=== PATIENT | male | born 1975 | race Caucasian/White ===

== ENCOUNTER → 2018-05-18 | Outpatient (CLI) | payer BC | END | disposition home or self-care (01) | LOC: LAB 15:27 | DX: Z23 Encounter for immunization (principal); R19.7 Diarrhea, unspecified; I10 Essential (primary) hypertension; R10.13 Epigastric pain ==

== ENCOUNTER → 2020-10-04 | Outpatient (CLI) | payer BC, OTHER ==
[2020-10-04 09:13] LABS: ALBUMIN 4.1 gm/dl (3.1-4.5); ALKALINE PHOSPHATASE 60 U/L (45-117); BILIRUBIN, DIRECT 0.2 mg/dL (0.0-0.2); CREATININE 1.21 mg/dL (0.70-1.30); SGOT/AST 25 IU/L (3-35); SGPT/ALT 54 U/L (12-78); TOTAL PROTEIN 8.4 gm/dL (6.4-8.2)
[2020-10-05 04:06] LABS: HEP B CORE AB, IGM Negative (Negative); HEPATITIS B SURFACE AG Negative (Negative); HEPATITIS C VIRUS ANTIBODY <0.1 s/co (0.0-0.9)
== END | disposition home or self-care (01) ==
LOC: US 09-04 07:30 → LAB 07:11 → US 07:11
PROVIDERS: ATTEND Nurse Practitioner Family
DX: K76.0 Fatty (change of) liver, not elsewhere classified (principal)

== ENCOUNTER → 2024-11-08 | Outpatient (CLI) | payer BC ==
[2024-11-08 07:51] LABS: BASO % 0.4 % (0.0-1.0); EOS # 0.4 10*3/uL (0.0-0.4); EOS % 5.6 % (1.0-4.0); HEMATOCRIT 48.1 % (42.0-52.0); MEAN CELL VOLUME 90.4 fl (80.0-94.0); MEAN CORPUSCULAR HGB 30.5 pg (27.0-31.0); MEAN CORPUSCULAR HGB CONC 33.7 g/dl (33.0-37.0); MEAN PLATELET VOLUME 9.7 fl (9.6-12.3); NEUT # 3.1 10*3/uL (2.3-7.9); NEUT % 42.2 % (47.0-73.0); PLATELET COUNT AUTOMATED 379 10*3/uL (130-400); RED BLOOD COUNT 5.32 10*6/uL (4.50-5.90); WHITE BLOOD COUNT 7.3 10*3/uL (4.8-10.8)
[2024-11-08 08:46] LABS: ALKALINE PHOSPHATASE 61 U/L (46-116); BUN 16 mg/dl (9-23); CHLORIDE 105 mmol/L (98-107); CHOLESTEROL 173 mg/dL (<200); LDL CHOLESTEROL 99 mg/dL (9-159); POTASSIUM 3.6 mmol/L (3.4-5.1); SGPT/ALT 39 U/L (5-49); TOTAL PROTEIN 7.9 gm/dL (6.0-8.0); TRIGLYCERIDES 149 mg/dl (<150)
[2024-11-08 09:16] LABS: VITAMIN D, 25-HYDROXY 31.3 ng/mL (30-100)
== END | disposition home or self-care (01) ==
LOC: LAB 07:10
PROVIDERS: ATTEND Nurse Practitioner Family
DX: I10 Essential (primary) hypertension (principal); G47.33 Obstructive sleep apnea (adult) (pediatric); Q79.8 Other congenital malformations of musculoskeletal system; K76.0 Fatty (change of) liver, not elsewhere classified; E55.9 Vitamin D deficiency, unspecified; Z13.0 Encounter for screening for diseases of the blood and blood-forming organs and certain disorders involving the immune mechanism; R53.83 Other fatigue; Z79.899 Other long term (current) drug therapy